=== PATIENT | male | born 1970 | race Caucasian/White ===

== ENCOUNTER → 2017-07-10 | Outpatient (CLI) | payer BC ==
--- NOTE | 2017-07-10 16:12 | XR ---
Cervical spine HISTORY: Neck pain, radiculopathy 5 views of the cervical spine Cervical vertebral bodies show preserved height and bone mineralization. Minimal retrolisthesis grade 1 C3-4. Loss of disc height present at C5-6, C6-7 with associated spondylosis. Prevertebral soft tis sues are normal. No significant foraminal encroachment. IMPRESSION: Degenerative disc disease.
== END | disposition home or self-care (01) ==
LOC: RADXRYALE 15:26
PROVIDERS: ATTEND Physician Assistant Medical
DX: M50.10 Cervical disc disorder with radiculopathy, unspecified cervical region (principal)
CPT/HCPCS: 72050

== ENCOUNTER → 2017-09-08 | Outpatient (CLI) | payer BC ==
--- NOTE | 2017-09-08 07:58 | MR ---
EXAMINATION TYPE: MR cervical spine wo con DATE OF EXAM: 09/08/2017 COMPARISON: NONE HISTORY: Cervicalgia TECHNIQUE: Multiplanar, multisequence images of the cervical spine were acquired. C2-C3: No evidence for degenerative disc disease. No disc bulge/herniation or protrusion. No Canal stenosis. Foramina are patent bilaterally. C3-C4: No evidence for degenerative disc disease. No disc bulge/herniation or protrusion. No Canal stenosis. Foramina are patent bilaterally. C4-C5: Tiny right paracentral focal bulge is present. This has mild anterior thecal sac compression. No cord contact is evident. No spinal canal stenosis or neural foraminal stenosis is present. C5-C6: Broad-based disc bulge has moderate anterior thecal sac compression. This may have some associ ated endplate spurring. This has moderate anterior thecal sac compression greater into the left parac entral canal and may has some extension into the foramen on the left. Cord contact and mild cord flat tening appears to be present. Cord signal appears maintained. AP spinal canal stenosis is not evident . C6-C7: Endplate changes with associated disc material has moderate anterior thecal sac compression. T his has cord contact. No definite cord signal abnormality or deformity is evident. Uncovertebral join t hypertrophy is contributing to moderate bilateral foraminal narrowing. C7-T1: No evidence for degenerative disc disease. No disc bulge/herniation or protrusion. No Canal stenosis. Foramina are patent bilaterally. There is disc desiccation within the upper cervical spine. Some narrowing of the C5-6 disc space is p resent. Vertebral body heights are preserved. There is normal alignment. Cervical spinal cord is of normal signal. Craniovertebral junction relationships are within normal limits. IMPRESSION: 1. Endplate changes C5-6 C6-7 with moderate anterior thecal sac compression. These levels have cord c ontact and cord deformity is identified at C5-6. 2. Tiny right paracentral focal bulge C4-5 without cord contact or stenosis. 3. Foraminal narrowing due to uncovertebral joint hypertrophy C6-7 and to a milder degree C5-6.
== END | disposition home or self-care (01) ==
LOC: RADMRIMAIN 06:38
PROVIDERS: ATTEND Physician Assistant Medical
DX: M50.221 Other cervical disc displacement at C4-C5 level (principal); M50.322 Other cervical disc degeneration at C5-C6 level
CPT/HCPCS: 72141

== ENCOUNTER → 2017-12-09 | Outpatient (CLI) | payer BC ==
--- NOTE | 2017-12-09 11:21 | XR ---
EXAMINATION TYPE: XR chest 2V DATE OF EXAM: 12/09/2017 COMPARISON: NONE HISTORY: Chest pain TECHNIQUE: Frontal and lateral views of the chest are obtained. FINDINGS: There is no focal air space opacity. Focal eventration right hemidiaphragm. No evidence for pneumothorax. No pleural effusion. The cardiac silhouette size is within normal limits. The osseous structures are grossly intact. IMPRESSION: 1. No acute cardiopulmonary process.
== END | disposition home or self-care (01) ==
LOC: RADXRYALE 10:45
PROVIDERS: ATTEND Physician Assistant Medical
DX: Z01.818 Encounter for other preprocedural examination (principal)
CPT/HCPCS: 71046

== ENCOUNTER → 2018-11-15 | Outpatient (CLI) | payer BC ==
--- NOTE | 2018-11-15 16:09 | XR ---
EXAM TYPE: LUMBAR SPINE X RAY SERIES COMPARISON: NONE HISTORY: Back pain TECHNIQUE: 4 views are submitted. FINDINGS: Alignment is anatomic. The pedicles are intact. The transverse processes are intact. There is no s pondylolysis or spondylolisthesis. Degenerative change of the lumbar spine L4-5 and L5-S1 with facet arthropathy. Mild diffuse osteopenia. IMPRESSION: 1. Degenerative changes L4-5 and L5-S1 with mild diffuse osteopenia.
== END | disposition home or self-care (01) ==
LOC: RADXRYALE 15:47
PROVIDERS: ATTEND Physician Assistant Medical
DX: M47.817 Spondylosis without myelopathy or radiculopathy, lumbosacral region (principal); M85.88 Other specified disorders of bone density and structure, other site
CPT/HCPCS: 72110

== ENCOUNTER → 2021-11-05 | Outpatient (CLI) | payer BC ==
--- NOTE | 2021-11-05 12:50 | XR ---
EXAMINATION TYPE: XR chest 2V DATE OF EXAM: 11/05/2021 COMPARISON: Chest x-ray 12/09/2017 HISTORY: [id number] CHRONIC COUGH,POST COVID TECHNIQUE: Frontal and lateral views of the chest are obtained. FINDINGS: There is no focal air space opacity, pleural effusion, or pneumothorax seen. The cardiac silhouette size is within normal limits. Eventration of right hemidiaphragm is stable. Postop changes present in the cervical spine overlapping the upper thoracic spine. The osseous structures are intac t. IMPRESSION: No acute cardiopulmonary process.
== END | disposition home or self-care (01) ==
LOC: RADXRYALE 10:36
PROVIDERS: ATTEND Family Medicine
DX: U09.9 Post COVID-19 condition, unspecified (principal); R05.3 Chronic cough
CPT/HCPCS: 71046